=== PATIENT | male | born 1950 | race Caucasian/White ===

== ENCOUNTER 2019-01-31 07:30 | Day surgery (SDC) | payer OTHER ==
[~2019-01-31 07:30] MED LIST: AMLODIPINE BES2.5 MG PO; CIPRO500 MG PO; LOSARTAN-HCTZ1 EAC1 PO; MONTELUKAST SOD10 MG PO; PERCOCET 5/321 UDTAB PO; RECTICARE30 GM TP
== END 2019-01-31 12:20 | disposition home or self-care (01) ==
LOC: AMB-ENDOS 07:30
DX: D12.0 Benign neoplasm of cecum (principal); K62.4 Stenosis of anus and rectum; K64.8 Other hemorrhoids

== ENCOUNTER 2022-10-29 07:17 | Day surgery (SDC) | payer OTHER | END 2022-10-29 11:35 | disposition home or self-care (01) | LOC: AMB-ENDOS 07:17 → CIR.AMB 13:00 | PROVIDERS: ATTEND Surgery | DX: K62.4 Stenosis of anus and rectum (principal); D12.6 Benign neoplasm of colon, unspecified; K56.609 Unspecified intestinal obstruction, unspecified as to partial versus complete obstruction; Z20.822 Contact with and (suspected) exposure to COVID-19 ==

== ENCOUNTER 2023-04-01 13:19 | Emergency (ER) | payer OTHER ==
[~2023-04-01] VITALS: Ht 172.7 cm; Wt 98.0 kg
== END 2023-04-01 19:43 | disposition home or self-care (01) ==
LOC: ER 13:19
DX: R10.84 Generalized abdominal pain (principal); K43.9 Ventral hernia without obstruction or gangrene; R14.0 Abdominal distension (gaseous)

== ENCOUNTER 2023-05-17 07:54 | Inpatient (IN) | payer OTHER ==
[~2023-05-17] VITALS: Ht 172.7 cm; Wt 90.7 kg
[2023-05-20] MEDS ORDERED: LOSARTAN POTAS100 MG (08:22)
[2023-05-20] MEDS ORDERED: AMLODIPINE BESYL5 MG (08:22)
[2023-05-20] MEDS ORDERED: UROXATRAL10 MG (08:22)
[2023-05-20] MEDS ORDERED: FINASTERIDE5 MG (08:22)
[2023-05-20] MEDS ORDERED: TOLTERODINE TART2 M1 (08:23)
[2023-05-20] MEDS ORDERED: ROSUVASTATIN CA10 MG (08:23)
[2023-05-20] MEDS ORDERED: PANTOPRAZOLE SO40 MG (08:25)
[2023-05-20] MEDS ORDERED: VALSARTAN-HCTZ1 EAC2 (08:25)
== END 2023-05-21 15:09 | disposition home or self-care (01) | DRG 392 ==
LOC: ER 07:54 → MEDI 15:42
PROVIDERS: ADMIT Specialist; ATTEND Specialist
PROC: BW21ZZZ Computerized Tomography (CT Scan) of Abdomen and Pelvis (ICD-10-PCS; principal; 2023-05-17)
PROC: BT04ZZZ Plain Radiography of Kidneys, Ureters and Bladder (ICD-10-PCS; 2023-05-18)
PROC: BW40ZZZ Ultrasonography of Abdomen (ICD-10-PCS; 2023-05-18)
DX: K59.00 Constipation, unspecified (principal); K81.0 Acute cholecystitis; N39.0 Urinary tract infection, site not specified; G30.9 Alzheimer's disease, unspecified; F02.80 Dementia in other diseases classified elsewhere, unspecified severity, without behavioral disturbance, psychotic disturbance, mood disturbance, and anxiety

== ENCOUNTER 2023-05-22 23:40 | Inpatient (IN) | payer OTHER ==
[~2023-05-22] VITALS: Ht 167.6 cm; Wt 76.7 kg
[~2023-05-22 23:40] MED LIST changes: +AMLODIPINE BESYL5 MG; +FINASTERIDE5 MG; +LOSARTAN POTAS100 MG; +PANTOPRAZOLE SO40 MG; +ROSUVASTATIN CA10 MG; +TOLTERODINE TART2 M1; +UROXATRAL10 MG; +VALSARTAN-HCTZ1 EAC2
[2023-06-05] MEDS ORDERED: PEPCID AC20 MG PO ×2 (10:13→10:20)
[2023-06-05] MEDS ORDERED: PERCOCET 5-3251 EACH PO (10:13)
[2023-06-05] MEDS ORDERED: LEVSIN/SL0.125 MG SL (10:14)
[2023-06-05] MEDS ORDERED: INTESTINEX680 M1 PO (10:14)
== END 2023-06-05 13:11 | disposition home or self-care (01) | DRG 330 ==
LOC: ER 23:40 → MEDJ 05-23 18:45 → SURH 05-23 18:45
PROVIDERS: Surgery; ADMIT Specialist; ATTEND Specialist
PROC: BW21ZZZ Computerized Tomography (CT Scan) of Abdomen and Pelvis (ICD-10-PCS; 2023-05-23)
PROC: 4A12X4Z Monitoring of Cardiac Electrical Activity, External Approach (ICD-10-PCS; 2023-05-23)
PROC: 3E0F7SF Introduction of Other Gas into Respiratory Tract, Via Natural or Artificial Opening (ICD-10-PCS; 2023-05-23)
PROC: 0D9670Z Drainage of Stomach with Drainage Device, Via Natural or Artificial Opening (ICD-10-PCS; 2023-05-25)
PROC: BW21YZZ Computerized Tomography (CT Scan) of Abdomen and Pelvis using Other Contrast (ICD-10-PCS; 2023-05-25)
PROC: 02HV33Z Insertion of Infusion Device into Superior Vena Cava, Percutaneous Approach (ICD-10-PCS; 2023-05-25)
PROC: 3E0436Z Introduction of Nutritional Substance into Central Vein, Percutaneous Approach (ICD-10-PCS; 2023-05-25)
PROC: 0D7N8ZZ Dilation of Sigmoid Colon, Via Natural or Artificial Opening Endoscopic (ICD-10-PCS; 2023-05-27)
PROC: 0DN80ZZ Release Small Intestine, Open Approach (ICD-10-PCS; 2023-05-29)
PROC: 0DNW0ZZ Release Peritoneum, Open Approach (ICD-10-PCS; 2023-05-29)
PROC: 0DJD4ZZ Inspection of Lower Intestinal Tract, Percutaneous Endoscopic Approach (ICD-10-PCS; 2023-05-29)
PROC: 0DQ80ZZ Repair Small Intestine, Open Approach (ICD-10-PCS; principal; 2023-05-29 08:15)
DX: K56.50 Intestinal adhesions [bands], unspecified as to partial versus complete obstruction (principal); K91.72 Accidental puncture and laceration of a digestive system organ or structure during other procedure; K56.41 Fecal impaction; K62.4 Stenosis of anus and rectum; D72.829 Elevated white blood cell count, unspecified; E87.6 Hypokalemia; E86.0 Dehydration; R33.8 Other retention of urine; I10 Essential (primary) hypertension; G47.33 Obstructive sleep apnea (adult) (pediatric); Z53.31 Laparoscopic surgical procedure converted to open procedure

== ENCOUNTER 2023-12-27 02:07 | Inpatient (IN) | payer OTHER ==
[~2023-12-27] VITALS: Ht 172.7 cm; Wt 99.8 kg
[~2023-12-27 02:07] MED LIST changes: +INTESTINEX680 M1 PO; +LEVSIN/SL0.125 MG SL; +PEPCID AC20 MG PO; +PERCOCET 5-3251 EACH PO
[2023-12-27] MEDS ORDERED: 0.9 % SODIUM CHLORIDE 1,000 ML IV ONE (03:00)
[2023-12-27 04:06] LABS: HEMOGLOBIN 14.1 g/dL (13-16.00); MEAN CELL VOLUME 86.7 fL (80.0-100.00); MEAN CORPUSCULAR HEMOGLOBIN 29.1 pg (27.00-32.0); MEAN CORPUSCULAR HGB CONC 33.6 g/dl (32.0-36.0); PLATELET COUNT 143 K/uL (150-450); RED BLOOD COUNT 4.85 M/uL (4.00-6.00); RED CELL DISTRIBUTION WIDTH 14.3 % (11.5-14.5)
[2023-12-27 04:17] LABS: ALBUMIN 3.7 gm/dL (3.4-5.0); BILIRUBIN TOTAL 1.17 mg/dL (0.3-1.2); BILIRUBIN,CONJUGATED 0.39 mg/dL (0.0-0.2); BILIRUBIN,UNCONJUGATED 0.78 mg/dL (0.0-0.6); CALCIUM 9.2 mg/dL (8.5-10.1); CREATININE SERUM 1.07 mg/dL (0.70-1.30); GFR 67.56; GLOBULINA 3.7 G/DL (2.4-3.5); POTASSIUM 3.57 mEq/L (3.5-5.1); TOTAL PROTEIN 7.4 gm/dL (6.4-8.2)
[2023-12-27 04:29] LABS: INR 1.36; PARTIAL THROMBOPLASTIN TIME 32.6 SECONDS (22.0-34.0)
[2023-12-27 07:04] LABS: PH,URINE 5.5 (5.0-8.0); URINE APPEARANCE Clear; URINE BILIRRUBIN Negative (NEGATIVE); URINE BLOOD Moderate; URINE COLOR Dark Yellow; URINE GLUCOSE Negative (NEGATIVE); URINE LEUKOCYTE Trace; URINE NITRATE Negative
[2023-12-27 07:13] LABS: URINE BACTERIA 832.6 uL (0.0-1933); URINE EPITHELIAL CELLS 18.5 uL (0.0-38.8); URINE RBC 75.8 uL (0.0-20.8); URINE WBC 21.3 uL (0.0-23.2)
[2023-12-27 08:26] LABS: URINE PROTEIN 300 (NEGATIVE)
[2023-12-27] MEDS ORDERED: FAMOTIDINE/PF 20 MG in 0.9 % SODIUM CHLORIDE 8 ML IV PUSH STA (09:48)
[2023-12-27] MEDS ORDERED: OSELTAMIVIR PHOSPHATE 75 MG CAPSULE PO ONE (10:00)
[2023-12-27] MEDS ORDERED: ONDANSETRON HCL 2 MG/ML VIAL IV ONE (10:00)
[2023-12-27] MEDS ORDERED: CEFTRIAXONE SODIUM 1,000 MG VIAL IV ONE (10:00)
[2023-12-27 10:57] LABS: ABG PH 7.455 (7.35-7.45); ABG PO2 77.7 mmHg (80-100); ABG pCO2 34.4 mmHg (35-45); BASE EXCESS 0.3 mmol/l; BICARBONATE 23.6 mmol/l (23-25); SaO2 96.1 %; Tco2 24.7 mmol/l; allen test SATISFACTORY; o2 21 %; puncture site RADIAL RIGHT
[2023-12-27 11:16] LABS: HEMATOCRIT 40.7 % (39.0-48.0); HEMOGLOBIN 13.9 g/dL (13-16.00); MEAN CELL VOLUME 87.8 fL (80.0-100.00); MEAN CORPUSCULAR HGB CONC 34.2 g/dl (32.0-36.0); PLATELET COUNT 130 K/uL (150-450); RED BLOOD COUNT 4.63 M/uL (4.00-6.00)
[2023-12-27] MEDS ORDERED: AZITHROMYCIN 500 MG in 0.9 % SODIUM CHLORIDE 250 ML IV SCH (12:19)
[2023-12-27] MEDS ORDERED: CEFTRIAXONE SODIUM 2,000 MG in 0.9 % SODIUM CHLORIDE 100 ML IV SCH (12:19)
[2023-12-27] MEDS ORDERED: METHYLPREDNISOLONE SOD SUCC 40 MG VIAL IV SCH (12:20)
[2023-12-27] MEDS ORDERED: LEVALBUTEROL HCL 1.25 MG/3 ML SOLUTION IH SCH ×2 (12:20→21:00)
[2023-12-27] MEDS ORDERED: GUAIFENESIN/DEXTROMETHORPHAN 100 MG/5 ML ML PO PRN (12:30)
[2023-12-27] MEDS ORDERED: INSULIN LISPRO 1,000 UNIT/10 ML UNITS SUBCUTANEO PRN ×2 (12:30→18:30)
[2023-12-27] MEDS ORDERED: DEXTROSE 50 % IN WATER 0.5 G/ML DISP.SYRIN IV PRN ×2 (12:30→18:30)
[2023-12-27] MEDS ORDERED: AMLODIPINE BESYLATE 5 MG TABLET PO SCH (18:12)
[2023-12-27] MEDS ORDERED: 0.9 % SODIUM CHLORIDE 1,000 ML IV SCH (18:15)
[2023-12-27] MEDS ORDERED: ACETAMINOPHEN 500 MG GEL..CAP PO PRN (18:15)
[2023-12-27] MEDS ORDERED: POLYETHYLENE GLYCOL 3350 17 GM BLIST.PACK PO ONE (18:15)
[2023-12-27] MEDS ORDERED: ONDANSETRON HCL 4 MG in 0.9 % SODIUM CHLORIDE 50 ML IV PRN (18:15)
[2023-12-28] MEDS ORDERED: IPRATROPIUM BROMIDE 0.5 MG/2.5 ML AMPUL.NEB IH SCH (01:00)
[2023-12-28] MEDS ORDERED: FAMOTIDINE/PF 20 MG in 0.9 % SODIUM CHLORIDE 8 ML IV PUSH SCH (09:00)
[2023-12-28] MEDS ORDERED: TAMSULOSIN HCL 0.4 MG CAP PO SCH (09:00)
[2023-12-28] MEDS ORDERED: LOSARTAN/HYDROCHLOROTHIAZIDE 1 UDTAB TABLET PO SCH (09:00)
[2023-12-28] MEDS ORDERED: ENOXAPARIN SODIUM 40 MG/0.4 ML SYRINGE SUBCUTANEO SCH (09:00)
[2023-12-28] MEDS ORDERED: FINASTERIDE 5 MG TABLET PO SCH (09:00)
[2023-12-28] MEDS ORDERED: OSELTAMIVIR PHOSPHATE 75 MG CAPSULE PO SCH (17:00)
[2023-12-29] MEDS ORDERED: BUDESONIDE 0.5 MG/2 ML AMPUL.NEB IH SCH (09:06)
[2023-12-29] MEDS ORDERED: PANTOPRAZOLE SODIUM 40 MG TABLET.DR PO SCH (09:06)
[2023-12-29] MEDS ORDERED: OXYBUTYNIN CHLORIDE 5 MG TABLET PO SCH (09:07)
[2023-12-29] MEDS ORDERED: MINERAL OIL 30 ML BLIST.PACK PO ONE (09:15)
[2023-12-29] MEDS ORDERED: LACTULOSE 20 G/30 ML BLIST.PACK PO ONE (09:15)
[2023-12-29] MEDS ORDERED: MAGNESIUM HYDROXIDE 30 ML BLIST.PACK PO ONE (09:15)
[2023-12-29] MEDS ORDERED: AMLODIPINE BESYLATE 5 MG TABLET PO SCH (17:00)
[2023-12-29] MEDS ORDERED: METHYLPREDNISOLONE SOD SUCC 40 MG VIAL IV SCH (17:00)
[2023-12-30 07:07] LABS: ALBUMIN 3.1 gm/dL (3.4-5.0); BILIRUBIN TOTAL 0.49 mg/dL (0.3-1.2); CREATININE SERUM 0.79 mg/dL (0.70-1.30); GFR 95.88; GLOBULINA 3.1 G/DL (2.4-3.5); POTASSIUM 3.89 mEq/L (3.5-5.1); TOTAL PROTEIN 6.2 gm/dL (6.4-8.2)
[2023-12-30 07:14] LABS: HEMATOCRIT 42.5 % (39.0-48.0); HEMOGLOBIN 14.5 g/dL (13-16.00); MEAN CELL VOLUME 85.9 fL (80.0-100.00); MEAN CORPUSCULAR HEMOGLOBIN 29.2 pg (27.00-32.0); PLATELET COUNT 169 K/uL (150-450); RED BLOOD COUNT 4.95 M/uL (4.00-6.00); RED CELL DISTRIBUTION WIDTH 14.3 % (11.5-14.5)
[2023-12-30 07:18] LABS: CALCIUM 8.9 mg/dL (8.5-10.1)
[2023-12-30] MEDS ORDERED: SODIUM CHLORIDE 0.45 % 1,000 ML IV SCH (09:30)
[2023-12-30 10:28] LABS: CALCIUM 9.2 mg/dL (8.5-10.1); CREATININE SERUM 0.91 mg/dL (0.70-1.30); GFR 81.44; POTASSIUM 3.69 mEq/L (3.5-5.1)
[2023-12-30 11:07] LABS: ABG PH 7.484 (7.35-7.45); ABG PO2 109.7 mmHg (80-100); ABG pCO2 34.2 mmHg (35-45); SaO2 98.7 %
[2023-12-30 11:08] LABS: BASE EXCESS 2.2 mmol/l; BICARBONATE 25.2 mmol/l (23-25); Tco2 26.2 mmol/l; o2 21 %
[2023-12-30 11:09] LABS: allen test SATISFACTORY; puncture site RADIAL LEFT
[2023-12-30 15:41] LABS: ALBUMIN 4.3 gm/dL (3.4-5.0); BILIRUBIN TOTAL 0.85 mg/dL (0.3-1.2); BILIRUBIN,CONJUGATED 0.28 mg/dL (0.0-0.2); BILIRUBIN,UNCONJUGATED 0.57 mg/dL (0.0-0.6); TOTAL PROTEIN 8.8 gm/dL (6.4-8.2)
[2023-12-30] MEDS ORDERED: LEVALBUTEROL HCL 1.25 MG/3 ML SOLUTION IH SCH (17:00)
[2023-12-31 06:45] LABS: ALBUMIN 3.2 gm/dL (3.4-5.0); BILIRUBIN TOTAL 0.64 mg/dL (0.3-1.2); BILIRUBIN,CONJUGATED 0.23 mg/dL (0.0-0.2); BILIRUBIN,UNCONJUGATED 0.41 mg/dL (0.0-0.6); TOTAL PROTEIN 6.2 gm/dL (6.4-8.2)
[2023-12-31] MEDS ORDERED: OSEL75CA PO (15:50)
[2023-12-31] MEDS ORDERED: AMLODIPINE BESYL5 MG PO (15:51)
[2023-12-31] MEDS ORDERED: UROXATRAL10 MG PO (15:51)
[2023-12-31] MEDS ORDERED: ROSUVASTATIN CA10 MG PO (15:52)
[2023-12-31] MEDS ORDERED: VALSARTAN-HCTZ1 EAC2 PO (15:53)
[2023-12-31] MEDS ORDERED: Tussi-Organidin Dm-S PO (15:53)
[2023-12-31] MEDS ORDERED: LEVOFLOXACIN500 MG PO (15:54)
== END 2023-12-31 17:14 | disposition home or self-care (01) | DRG 177 ==
LOC: ER 02:07 → MEDJ 18:31
PROVIDERS: General Practice; ADMIT Internal Medicine; ATTEND Internal Medicine
PROC: 3E0F7GC Introduction of Other Therapeutic Substance into Respiratory Tract, Via Natural or Artificial Opening (ICD-10-PCS; principal; 2023-12-27)
PROC: BW21YZZ Computerized Tomography (CT Scan) of Abdomen and Pelvis using Other Contrast (ICD-10-PCS; 2023-12-27)
PROC: BB24ZZZ Computerized Tomography (CT Scan) of Bilateral Lungs (ICD-10-PCS; 2023-12-27)
DX: J10.08 Influenza due to other identified influenza virus with other specified pneumonia (principal); B37.1 Pulmonary candidiasis; J15.5 Pneumonia due to Escherichia coli; J45.30 Mild persistent asthma, uncomplicated; J44.1 Chronic obstructive pulmonary disease with (acute) exacerbation; K56.41 Fecal impaction; E86.0 Dehydration; I51.7 Cardiomegaly; D69.6 Thrombocytopenia, unspecified; G47.33 Obstructive sleep apnea (adult) (pediatric); I10 Essential (primary) hypertension